=== PATIENT | male | born 1970 | race American Indian/Alaskan Native ===

== ENCOUNTER 2017-09-02 00:55 | Emergency (ER) | payer SELFPAY ==
[2017-09-02] MEDS ORDERED: TORADOL IM ONE (04:30)
--- NOTE | 2017-09-02 04:35 | Emergency Department Report ---
ED ENT HPI - General Chief complaint: Dental/Oral Stated complaint: TOOTHACHE Time Seen by Provider: 09/02/17 04:21 Source: patient Mode of arrival: Ambulatory Limitations: No Limitations - History of Present Illness Initial comments: This is a 46-year-old male nontoxic, well nourished in appearance, no acute signs of distress presents to the ED with c/o of acute on chronic toothache. Patient stated 2 days ago pain has increased. Patient denies any facial swelling, drooling, hoarseness, fever, chills, difficulty breathing, numbness, tingling, chest pain or shortness of breath. Patient states allergies to penicillin. Past medical history includes hypertension. MD complaint: tooth pain -: days(s) (2) Location: tooth # (30) 1 - toothache Severity: mild Severity scale (0 -10): 8 Quality: aching Consistency: constant Improves with: none Worsens with: none Associated Symptoms: gum swelling, toothache. denies: fever, cough, pain with swallowing, sore throat, tinnitus, hearing loss, discharge from ear, rhinorrhea - Related Data Home Medications Medication Instructions Recorded Confirmed Last Taken Lisinopril/Hydrochlorothiazide 1 tab PO DAILY 10/20/13 10/20/13 10/19/13 [Zestoretic 20-25 mg] Previous Rx's Medication Instructions Recorded Last Taken Type Clindamycin [Clindamycin CAP] 300 mg PO Q6H #28 capsule 10/20/13 Unknown Rx Oxycodone HCl/Acetaminophen 1 each PO Q6HR PRN #20 tablet 10/20/13 Unknown Rx [Percocet 10-325 mg] Chlorhexidine Mouthwash [Peridex] 15 ml MM BID #1 bottle 09/02/17 Unknown Rx Clindamycin [Clindamycin CAP] 300 mg PO Q8H 7 Days capsule 09/02/17 Unknown Rx traMADol [Ultram] 50 mg PO Q6HR PRN #12 tablet 09/02/17 Unknown Rx Allergies Allergy/AdvReac Type Severity Reaction Status Date / Time Penicillins Allergy Angioedema Verified 10/20/13 01:08 ED Dental HPI - General Chief complaint: Dental/Oral Stated complaint: TOOTHACHE Time Seen by Provider: 09/02/17 04:21 Source: patient Mode of arrival: Ambulatory Limitations: No Limitations - Related Data Home Medications Medication Instructions Recorded Confirmed Last Taken Lisinopril/Hydrochlorothiazide 1 tab PO DAILY 10/20/13 10/20/13 10/19/13 [Zestoretic 20-25 mg] Previous Rx's Medication Instructions Recorded Last Taken Type Clindamycin [Clindamycin CAP] 300 mg PO Q6H #28 capsule 10/20/13 Unknown Rx Oxycodone HCl/Acetaminophen 1 each PO Q6HR PRN #20 tablet 10/20/13 Unknown Rx [Percocet 10-325 mg] Chlorhexidine Mouthwash [Peridex] 15 ml MM BID #1 bottle 09/02/17 Unknown Rx Clindamycin [Clindamycin CAP] 300 mg PO Q8H 7 Days capsule 09/02/17 Unknown Rx traMADol [Ultram] 50 mg PO Q6HR PRN #12 tablet 09/02/17 Unknown Rx Allergies Allergy/AdvReac Type Severity Reaction Status Date / Time Penicillins Allergy Angioedema Verified 10/20/13 01:08 ED Review of Systems ROS: Stated complaint: TOOTHACHE Other details as noted in HPI Constitutional: denies: chills, fever Eyes: denies: eye pain, eye discharge, vision change ENT: dental pain. denies: ear pain, throat pain Respiratory: denies: cough, shortness of breath, wheezing Cardiovascular: denies: chest pain, palpitations Endocrine: no symptoms reported Gastrointestinal: denies: abdominal pain, nausea, diarrhea Genitourinary: denies: urgency, dysuria Musculoskeletal: denies: back pain, joint swelling, arthralgia Skin: denies: rash, lesions Neurological: denies: headache, weakness, paresthesias Psychiatric: denies: anxiety, depression Hematological/Lymphatic: denies: easy bleeding, easy bruising ED Past Medical Hx - Past Medical History Previous Medical History?: Yes Hx Hypertension: Yes - Surgical History Past Surgical History?: No - Social History Smoking Status: Current Every Day Smoker Substance Use Type: Alcohol - Medications Home Medications: Home Medications Medication Instructions Recorded Confirmed Last Taken Type Clindamycin [Clindamycin CAP] 300 mg PO Q6H #28 capsule 10/20/13 Unknown Rx Lisinopril/Hydrochlorothiazide 1 tab PO DAILY 10/20/13 10/20/13 10/19/13 History [Zestoretic 20-25 mg] Oxycodone HCl/Acetaminophen 1 each PO Q6HR PRN #20 tablet 10/20/13 Unknown Rx [Percocet 10-325 mg] Chlorhexidine Mouthwash [Peridex] 15 ml MM BID #1 bottle 09/02/17 Unknown Rx Clindamycin [Clindamycin CAP] 300 mg PO Q8H 7 Days capsule 09/02/17 Unknown Rx traMADol [Ultram] 50 mg PO Q6HR PRN #12 tablet 09/02/17 Unknown Rx ED Physical Exam - General Limitations: No Limitations General appearance: alert, in no apparent distress - Head Head exam: Present: atraumatic, normocephalic - Eye Eye exam: Present: normal appearance - ENT ENT exam: Present: mucous membranes moist, TM's normal bilaterally, normal external ear exam - Expanded ENT Exam Expanded Ear exam: Present: normal external inspection Mouth exam: Present: normal external inspection, tongue normal. Absent: drooling, trismus, muffled voice, tongue elevation, laceration Teeth exam: Present: dental caries, fractured tooth # (30), dental tenderness # (30), gingival enlargement, other (No facial swelling or abscess noted. ) Throat exam: Positive: normal inspection, other (Uvula midline. ). Negative: tonsillar erythema, tonsillomegaly, tonsillar exudate, R peritonsillar mass, L peritonsillar mass - Neck Neck exam: Present: normal inspection, full ROM. Absent: tenderness, meningismus, lymphadenopathy, thyromegaly - Respiratory Respiratory exam: Present: normal lung sounds bilaterally. Absent: respiratory distress - Cardiovascular Cardiovascular Exam: Present: regular rate, normal rhythm. Absent: systolic murmur, diastolic murmur, rubs, gallop - GI/Abdominal GI/Abdominal exam: Present: soft, normal bowel sounds - Rectal Rectal exam: Present: deferred - Extremities Exam Extremities exam: Present: normal inspection - Back Exam Back exam: Present: normal inspection - Neurological Exam Neurological exam: Present: alert, oriented X3 - Psychiatric Psychiatric exam: Present: normal affect, normal mood - Skin Skin exam: Present: warm, dry, intact, normal color. Absent: rash ED Course Vital Signs 09/02/17 01:26 Temperature 98.7 F Pulse Rate 89 Respiratory 18 Rate Blood Pressure 191/108 O2 Sat by Pulse 97 Oximetry - Reevaluation(s) Reevaluation #1: 09/02/17 04:33 Patient is speaking in full sentences with no signs of distress noted. Critical care attestation.: If time is entered above; I have spent that time in minutes in the direct care of this critically ill patient, excluding procedure time. ED Disposition Clinical Impression: Dental caries, Gingivitis Disposition: DC- TO HOME OR SELFCARE Is pt being admited?: No Does the pt Need Aspirin: No Condition: Stable Instructions: Dental Caries (ED), Gingivitis (ED), Tramadol (By mouth) Additional Instructions: Follow-up with a dentist doctor in 3-5 days or if symptoms worsen and continue return to emergency room as soon as possible. Do not operate any machinery while taking Ultram due to drowsiness Prescriptions: Chlorhexidine Mouthwash [Peridex] 15 ml MM BID #1 bottle Clindamycin [Clindamycin CAP] 300 mg PO Q8H 7 Days capsule traMADol [Ultram] 50 mg PO Q6HR PRN #12 tablet PRN Reason: Pain Referrals: PRIMARY CARE, [Primary Care Provider] - 3-5 Days [facility] [Outside] - 3-5 Days Forms: Work/School Release Form(ED)
[2017-09-02] MEDS ORDERED: TORADOL ONE (05:10)
[2017-09-02 06:11] VITALS: BP 169/97
== END 2017-09-02 06:22 | disposition home or self-care (01) ==
LOC: ED 00:55
DX: K02.9 Dental caries, unspecified (principal); K05.10 Chronic gingivitis, plaque induced; F17.200 Nicotine dependence, unspecified, uncomplicated; I10 Essential (primary) hypertension; Z88.0 Allergy status to penicillin
CPT/HCPCS: 96372; 99282; J1885